=== PATIENT | female | born 1960 | race Caucasian/White ===

== ENCOUNTER 2017-02-14 13:15 | Emergency (ER) | payer MEDICARE ==
[2017-02-14 15:09] LABS: HEMOGLOBIN 13.4 gm/dl (12.3-15.3); RED BLOOD COUNT 4.5 M/UL (4.00-5.10); WHITE BLOOD COUNT 12.2 K/UL (4.5-11.0)
== END 2017-02-14 18:17 | disposition home or self-care (01) ==
LOC: ER1 13:15
PROVIDERS: Physician Assistant
DX: J18.9 Pneumonia, unspecified organism (principal); I25.10 Atherosclerotic heart disease of native coronary artery without angina pectoris; E11.9 Type 2 diabetes mellitus without complications; I10 Essential (primary) hypertension; F17.290 Nicotine dependence, other tobacco product, uncomplicated; Z95.5 Presence of coronary angioplasty implant and graft; Z88.0 Allergy status to penicillin
CPT/HCPCS: 36415; 71020; 80053; 83605; 84484; 85025; 87040; 93005; 99285; J7050; Q9963